=== PATIENT | female | born 1980 | race Two or more races ===

== ENCOUNTER 2020-03-24 13:35 | Emergency (ER) | payer BC ==
[2020-03-24] MEDS ORDERED: Sodium Chloride 0.9% 1,000 ML IV ONE (13:59)
[2020-03-24] MEDS ORDERED: Sodium Chloride 0.9% 10 ML Syringe FLUSH PRN (13:59)
[2020-03-24] MEDS ORDERED: Meclizine 25 MG Tab PO ONE ×2 (13:59→15:02)
--- NOTE | 2020-03-24 14:09 | EDM.PDOC ---
ED HPI GENERAL MEDICAL PROBLEM - General Chief Complaint: Neuro Symptoms/Deficits Stated Complaint: DIZZINESS/VERTIGO Time Seen by Provider: 03/24/20 13:40 Source of Information: Reports: Patient History Limitations: Reports: No Limitations - History of Present Illness INITIAL COMMENTS - FREE TEXT/NARRATIVE: 39 YO FEMALE WITH 4 DAY HISTORY OF DIZZINESS. PT REPORTS TAKING DRAMAMINE WITH RESOLUTION ON WEDNESDAY BUT HER DIZZINESS HAS BECOME PROGRESSIVELY WORSE WITH ASSOCIATED VOMITING LAST NIGHT AND TODAY. PT REPORTS DIZZINESS IS WORSE WITH MOVEMENT. PT REPORTS SHE NOTICES THE ROOM SPINNING ESPECIALLY WHEN TURNING OVER IN BED. PT REPORTS RECENTLY BEING TREATED FOR AN EAR INFECTION ON LEFT SIDE. PT REPORTS SHE TOOK SEPTRA DS FOR INFECTION AND FINISHED COURSE 6 DAYS AGO. PT R EPORTS SOME MILD RINGING/TINNITUS IN LEFT EAR, BUT DENIES PAIN OR DECREASED HEARING. PT DENIES FEVER/CHILLS, NO DIARRHEA OR ABDOMINAL PAIN. PT REPORTS BEING UNABLE TO HOLD DOWN HER BP MEDICATIONS- ATENOLOL/LISINOPRIL THIS AM. Onset Date: 03/21/20 Duration: Day(s): (4) Location: Reports: Generalized Quality: Reports: Dull Severity: Mild Improves with: Reports: Rest Worsens with: Reports: Movement Associated Symptoms: Reports: Chest Pain, Loss of Appetite, Nausea/Vomiting, Weakness. Denies: Cough, Diaphoresis, Fever/Chills, Malaise, Rash, Seizure, Shortness of Breath, Syncope - Related Data Allergies Allergy/AdvReac Type Severity Reaction Status Date / Time Penicillins Allergy Airway Verified 03/24/20 14:08 Tightness Home Meds: Home Meds Meclizine [Antivert] 25 mg PO TID #30 tab 03/24/20 [Rx] Ondansetron [Zofran ODT] 4 mg PO Q6H PRN #10 tab.dis 03/24/20 [Rx] RX: atenoloL [Atenolol] 50 mg PO QAM 03/24/20 [History] lisinopriL [Lisinopril] 5 mg PO QAM 03/24/20 [History] metFORMIN [Glucophage] 500 mg PO BIDMEALS 03/24/20 [History] ED ROS GENERAL - Review of Systems Review Of Systems: See Below Constitutional: Reports: Weakness HEENT: Reports: No Symptoms Respiratory: Reports: No Symptoms Cardiovascular: Reports: Blood Pressure Problem, Lightheadedness Endocrine: Reports: No Symptoms GI/Abdominal: Reports: Nausea, Vomiting : Reports: No Symptoms Musculoskeletal: Reports: No Symptoms Skin: Reports: No Symptoms Neurological: Reports: No Symptoms Psychiatric: Reports: No Symptoms Hematologic/Lymphatic: Reports: No Symptoms Immunologic: Reports: No Symptoms ED EXAM, DIZZINESS - Physical Exam Exam: See Below Exam Limited By: No Limitations General Appearance: Alert, WD/WN, No Apparent Distress Eye Exam: Bilateral Eye: EOMI, PERRL Ears: Hearing Grossly Normal, TM Fluid Nose: Normal Inspection, Normal Mucosa, No Blood Throat/Mouth: Normal Inspection, Normal Lips, Normal Teeth, Normal Gums, Normal Oropharynx, Normal Voice, No Airway Compromise Head Exam: Atraumatic, Normocephalic Vertigo: worsens with head to L, reproducible Neck: Normal Inspection, Supple, Non-Tender, Full Range of Motion Respiratory/Chest: No Respiratory Distress, Lungs Clear, Normal Breath Sounds, No Accessory Muscle Use, Chest Non-Tender Cardiovascular: Normal Peripheral Pulses, Regular Rate, Rhythm, No Edema, No Gallop, No JVD, No Murmur, No Rub GI/Abdominal: Normal Bowel Sounds, Soft, Non-Tender, No Organomegaly, No Distention, No Abnormal Bruit, No Mass Neurological: Alert, Normal Mood/Affect, Normal Dorsiflexion, CN II-XII Intact, Normal Plantar Flexion, Normal Reflexes, No Motor/Sensory Deficits, Oriented x 3 Back Exam: Normal Inspection, Full Range of Motion, NT Extremities: Normal Inspection, Normal Range of Motion, Non-Tender, No Pedal Edema, Normal Capillary Refill Psychiatric: Normal Affect, Normal Mood Skin Exam: Warm, Dry, Intact, Normal Color, No Rash EKG INTERPRETATION EKG Date: 03/24/20 Time: 14:13 Rhythm: NSR Rate (Beats/Min): 76 Kite: Normal P-Wave: Present QRS: Normal ST-T: Normal QT: Normal Comparison: NA - No Prior EKG Course - Vital Signs Last Recorded V/S: Last Vital Signs Temp 36.0 C L 03/24/20 13:55 Pulse 80 03/24/20 15:01 Resp 18 03/24/20 13:55 BP 168/122 H 03/24/20 15:01 Pulse Ox 96 03/24/20 13:55 - Orders/Labs/Meds Orders: Active Orders 24 hr Category Date Time Status EKG Documentation Completion [RC] ASDIRECTED Care 03/24/20 14:00 Active Peripheral IV Care [RC] . DIRECTED Care 03/24/20 14:00 Active Sodium Chloride 0.9% [Saline Flush] Med 03/24/20 13:59 Active 10 ml FLUSH Q8HR PRN Peripheral IV Insertion Adult [OM.PC] Routine Oth 03/24/20 13:59 Ordered EKG 12 Lead [EK] Stat Ther 03/24/20 14:00 Ordered Medication Orders Sodium Chloride (Saline Flush) 10 ml FLUSH Q8HR PRN PRN Reason: keep vein open Labs: Laboratory Tests 03/24/20 03/24/20 03/24/20 Range/Units 13:49 13:49 13:49 WBC 13.49 H (5.00-10.00) 10^3/uL RBC 5.02 (3.80-5.50) 10^6/uL Hgb 15.2 (12.0-16.0) g/dL Hct 45.0 (37.0-47.0) % MCV 89.6 (82.0-92.0) fL MCH 30.3 (27.0-31.0) pg MCHC 33.8 (32.0-36.0) g/dL RDW 13.3 (11.5-14.5) % Plt Count 351 (150-400) 10^3/uL MPV 10.1 (7.4-10.4) fL Immature Gran % (Auto) 0.2 (0.0-5.0) % Neut % (Auto) 80.3 H (50.0-70.0) % Lymph % (Auto) 12.8 L (20.0-40.0) % [place] % (Auto) 5.6 (2.0-8.0) % Eos % (Auto) 0.9 L (1.0-3.0) % Baso % (Auto) 0.2 (0.0-1.0) % Neut # (Auto) 10.82 H (2.50-7.00) 10^3/uL Lymph # (Auto) 1.73 (1.00-4.00) 10^3/uL [place] # (Auto) 0.76 (0.10-0.80) 10^3/uL Eos # (Auto) 0.12 (0.10-0.30) 10^3/uL Baso # (Auto) 0.03 (0.00-0.10) 10^3/uL Immature Gran # (Auto) 0.03 (0.00-0.50) 10^3/uL Sodium 139 (136-145) mmol/L Potassium 4.0 (3.3-5.3) mmol/L Chloride 100 (98-115) mmol/L Carbon Dioxide 28.0 (21.0-32.0) mmol/L Anion Gap 15.0 (5-15) mmol/L BUN 13 (6-25) mg/dL Creatinine 0.60 (0.51-1.17) mg/dL Est Cr Clr Drug Dosing 108.70 mL/min Estimated GFR (MDRD) > 60 mL/min Glucose 163 H (75 - 99) mg/dL Calcium 9.1 (8.7-10.3) mg/dL Total Bilirubin 0.4 (0.2-1.0) mg/dL AST 15 (15-37) U/L ALT 33 (12-78) U/L Alkaline Phosphatase 91 (46-116) IU/L Creatine Kinase 109 (26-276) U/L CK-MB (CK-2) 1.90 (0.00-4.30) ng/mL Troponin I < 0.04 (0.00-0.070) ng/mL Total Protein 7.9 (6.4-8.2) g/dL Albumin 3.88 (3.00-4.80) g/dL HCG, Quant < 1 mIU/mL Specimen Type Urine Color (YELLOW) Urine Appearance (CLEAR) Urine pH (5.0-9.0) Ur Specific [place] (1.005-1.030) Urine Protein (NEGATIVE) mg/dL Urine Glucose (UA) (NEGATIVE) mg/dL Urine Ketones (NEGATIVE) mg/dL Urine Occult Blood (NEGATIVE) Urine Nitrite (NEGATIVE) Urine Bilirubin (NEGATIVE) Urine Urobilinogen (0.2-1.0) E.U./dL Ur Leukocyte Esterase (NEGATIVE) Urine RBC (0-5) /HPF Urine WBC (0-5) /HPF Ur Epithelial Cells /LPF Urine Bacteria (NONE TO FEW) /HPF Urine Mucus (NEGATIVE) /LPF 10/04/20 Range/Units 14:50 WBC (5.00-10.00) 10^3/uL RBC (3.80-5.50) 10^6/uL Hgb (12.0-16.0) g/dL Hct (37.0-47.0) % MCV (82.0-92.0) fL MCH (27.0-31.0) pg MCHC (32.0-36.0) g/dL RDW (11.5-14.5) % Plt Count (150-400) 10^3/uL MPV (7.4-10.4) fL Immature Gran % (Auto) (0.0-5.0) % Neut % (Auto) (50.0-70.0) % Lymph % (Auto) (20.0-40.0) % [place] % (Auto) (2.0-8.0) % Eos % (Auto) (1.0-3.0) % Baso % (Auto) (0.0-1.0) % Neut # (Auto) (2.50-7.00) 10^3/uL Lymph # (Auto) (1.00-4.00) 10^3/uL [place] # (Auto) (0.10-0.80) 10^3/uL Eos # (Auto) (0.10-0.30) 10^3/uL Baso # (Auto) (0.00-0.10) 10^3/uL Immature Gran # (Auto) (0.00-0.50) 10^3/uL Sodium (136-145) mmol/L Potassium (3.3-5.3) mmol/L Chloride (98-115) mmol/L Carbon Dioxide (21.0-32.0) mmol/L Anion Gap (5-15) mmol/L BUN (6-25) mg/dL Creatinine (0.51-1.17) mg/dL Est Cr Clr Drug Dosing mL/min Estimated GFR (MDRD) mL/min Glucose (75 - 99) mg/dL Calcium (8.7-10.3) mg/dL Total Bilirubin (0.2-1.0) mg/dL AST (15-37) U/L ALT (12-78) U/L Alkaline Phosphatase (46-116) IU/L Creatine Kinase (26-276) U/L CK-MB (CK-2) (0.00-4.30) ng/mL Troponin I (0.00-0.070) ng/mL Total Protein (6.4-8.2) g/dL Albumin (3.00-4.80) g/dL HCG, Quant mIU/mL Specimen Type Urinvoid Urine Color Yellow (YELLOW) Urine Appearance Slightly cloudy H (CLEAR) Urine pH 6.5 (5.0-9.0) Ur Specific [place] >= 1.030 (1.005-1.030) Urine Protein 30 H (NEGATIVE) mg/dL Urine Glucose (UA) Negative (NEGATIVE) mg/dL Urine Ketones 15 H (NEGATIVE) mg/dL Urine Occult Blood Negative (NEGATIVE) Urine Nitrite Negative (NEGATIVE) Urine Bilirubin Negative (NEGATIVE) Urine Urobilinogen 0.2 (0.2-1.0) E.U./dL Ur Leukocyte Esterase Negative (NEGATIVE) Urine RBC 0-5 (0-5) /HPF Urine WBC 5-10 H (0-5) /HPF Ur Epithelial Cells Moderate H /LPF Urine Bacteria Few (NONE TO FEW) /HPF Urine Mucus Many H (NEGATIVE) /LPF Meds: Medications Generic Name Dose Route Start Last Admin Trade Name Freq PRN Reason Stop Dose Admin Sodium Chloride 10 ml 03/24/20 13:59 Saline Flush FLUSH Q8HR PRN keep vein open Discontinued Medications Generic Name Dose Route Start Last Admin Trade Name Freq PRN Reason Stop Dose Admin Atenolol 50 mg 03/24/20 14:53 03/24/20 15:01 Tenormin PO 03/24/20 14:54 50 mg ONETIME ONE Administration Sodium Chloride 1,000 mls @ 999 mls/hr 03/24/20 13:59 03/24/20 14:20 Normal Saline IV 03/24/20 14:59 999 mls/hr .BOLUS ONE Administration Lisinopril 5 mg 03/24/20 14:53 03/24/20 15:01 Prinivil PO 03/24/20 14:54 5 mg ONETIME ONE Administration Meclizine HCl 25 mg 03/24/20 13:59 03/24/20 14:15 Antivert PO 03/24/20 14:00 25 mg ONETIME ONE Administration Meclizine HCl 75 mg 03/24/20 15:02 Antivert PO 03/24/20 15:03 ONETIME ONE Ondansetron HCl 4 mg 03/24/20 13:59 03/24/20 14:21 Zofran IVPUSH 03/24/20 14:00 4 mg ONETIME ONE Administration Ondansetron HCl 12 mg 03/24/20 15:02 Zofran Odt PO 03/24/20 15:03 ONETIME ONE - Radiology Interpretation Free Text/Narrative:: CXR-NAD CT HEAD- NAD - Re-Assessments/Exams Free Text/Narrative Re-Assessment/Exam: 03/24/20 15:12 PT REPORTS NAUSEA AND DIZZINESS RESOLVED AFTER MEDICATION. PT ALERT AND ORIENTED X 4. PT REPORTS SHE'S HEADED HOME TONIGHT-NOT DRIVING AND WILL FOLLOW UP WITH PCP EARLY THIS WEEK. PT ABLE TO AMBULATE WITH MINIMAL ATAXIA Departure - Departure Time of Disposition: 15:15 Disposition: Home, Self-Care 01 Condition: Good Clinical Impression: Vertigo, Acute viral labyrinthitis of left ear - Discharge Information Prescriptions: Meclizine [Antivert] 25 mg PO TID #30 tab Ondansetron [Zofran ODT] 4 mg PO Q6H PRN #10 tab.dis PRN Reason: Vomiting Instructions: Labyrinthitis, [id number], Dizziness, [id number] Referrals: Carol Hagen MD [Primary Care Provider] - Forms: ED Department Discharge Additional Instructions: 1. DISCHARGE HOME 2. ANTIVERT 25MG #30 EVERY 8 HOURS NEEDED FOR DIZZINESS 3. ZOFRAN 4MG ODT #10 EVERY 6-8 HOURS NEEDED FOR NAUSEA 4. CONTINUE HOME MEDICATIONS 5. FOLLOW UP WITH PCP IN [facility] NEXT 24-48 HOURS FOR FURTHER EVALUATION AND TREATMENT 6. RETURN TO ER FOR WORSENING SYMPTOMS Sepsis Event Note (ED) - Focused Exam Vital Signs: Vital Signs Temp Pulse Pulse Resp BP BP Pulse Ox 03/24/20 15:01 80 168/122 H 03/24/20 13:55 36.0 C L 77 18 179/109 H 96 - My Orders Last 24 Hours: My Active Orders 03/24/20 13:59 Sodium Chloride 0.9% [Saline Flush] 10 ml FLUSH Q8HR PRN Peripheral IV Insertion Adult [OM.PC] Routine 03/24/20 14:00 EKG Documentation Completion [RC] ASDIRECTED Peripheral IV Care [RC] . DIRECTED EKG 12 Lead [EK] Stat - Assessment/Plan Last 24 Hours: My Active Orders 03/24/20 13:59 Sodium Chloride 0.9% [Saline Flush] 10 ml FLUSH Q8HR PRN Peripheral IV Insertion Adult [OM.PC] Routine 03/24/20 14:00 EKG Documentation Completion [RC] ASDIRECTED Peripheral IV Care [RC] . DIRECTED EKG 12 Lead [EK] Stat Assessment:: 1. VERTIGO/LABYRINTHITIS 2. UNCONTROLLED HYPERTENSION Plan: 1. DISCHARGE HOME 2. ANTIVERT 25MG #30 EVERY 8 HOURS NEEDED FOR DIZZINESS 3. ZOFRAN 4MG ODT #10 EVERY 6-8 HOURS NEEDED FOR NAUSEA 4. CONTINUE HOME MEDICATIONS 5. FOLLOW UP WITH PCP IN [facility] NEXT 24-48 HOURS FOR FURTHER EVALUATION AND TREATMENT 6. RETURN TO ER FOR WORSENING SYMPTOMS
[2020-03-24] MEDS: Ondansetron 4 MG/2 ML SDV IVPUSH ONE ×3 (14:21→15:46)
[2020-03-24 14:38] LABS: CHLORIDE,CL 100 mmol/L (98-115); SODIUM,NA 139 mmol/L (136-145)
[2020-03-24] MEDS ORDERED: Atenolol 25 MG Tab PO ONE (14:53)
[2020-03-24] MEDS ORDERED: Lisinopril 5 MG Tab PO ONE (14:53)
[2020-03-24] MEDS ORDERED: Ondansetron 4 MG Tab.DIS PO ONE (15:02)
--- NOTE | 2020-03-24 15:11 | CR ---
[id number] RAD/RAD Chest PA or AP 1V EXAM: FRONTAL CHEST INDICATION: DIZZINESS. COMPARISON: None. DISCUSSION: Evaluation is mildly limited by low lung volumes with basilar atelectasis. Within this limitation, no infiltrates or other acute findings are seen. The heart is normal in size. There is mild tortuosity of the thoracic aorta. IMPRESSION: 1. Low lung volumes. Erasmo Powers MD 03/24/20 [id number] Thank you for allowing us to participate in the care of your patient.
--- NOTE | 2020-03-24 15:13 | CT ---
[id number] CT/CT Head WO IV EXAM: NONCONTRAST HEAD CT INDICATION: DIZZINESS. COMPARISON: September 11, 2019. DISCUSSION: The ventricles and sulci are normal in size and configuration. The baltazar and white matter are normal in attenuation. No mass effect or midline shift. No acute hemorrhage or extra-axial fluid collection. No acute territorial infarct is identified. A limited look at the orbits and paranasal sinuses is unremarkable. IMPRESSION: 1. Negative exam. Erasmo Powers MD 03/24/20 1512 Thank you for allowing us to participate in the care of your patient.
[2020-03-24] MEDS ORDERED: Ondansetron 4 MG/2 ML SDV ONE (15:41)
[2020-03-25] MEDS: Ondansetron 4 MG/2 ML SDV IVPUSH ONE (15:06)
== END 2020-03-24 16:10 | disposition home or self-care (01) ==
LOC: KA.ED 13:35
DX: H83.02 Labyrinthitis, left ear (principal); I10 Essential (primary) hypertension; Z88.0 Allergy status to penicillin; Z79.899 Other long term (current) drug therapy
CPT/HCPCS: 70450; 71045; 80053; 81001; 82550; 82553; 84484; 84702; 85025; 93005; 96361; 96374; 96376; 99284; A9270; J2405; J7030; 99283

== ENCOUNTER 2020-09-15 17:59 | Emergency (ER) | payer BC ==
[2020-09-15] MEDS: LORazepam 0.5 MG Tab PO ONE (18:18)
[2020-09-15] MEDS ORDERED: Sodium Chloride 0.9% 10 ML Syringe FLUSH PRN (18:50)
--- NOTE | 2020-09-15 18:51 | EDM.PDOC ---
ED HPI GENERAL MEDICAL PROBLEM - General Chief Complaint: General Stated Complaint: HYPERTENSION Time Seen by Provider: 09/15/20 18:37 Source of Information: Reports: Patient History Limitations: Reports: No Limitations - History of Present Illness INITIAL COMMENTS - FREE TEXT/NARRATIVE: Patient presents with high blood pressure and headache. She rates the headache at 4/10 which is worse than it has been over the past two days since onset. Her blood pressure has been high ever since she switched from Hyzaar or Cozaar to Lisinopril 3 months ago. At the same time of the switched her atenolol dose was also decreased. Her BP has been averaging 140's/90's she says. Occasional episodes to 200+/120 have occurred. She hasn't followed up with her PCP in [place] at all in 3 months, just thinking it would start getting better. Headache Pain Score (Numeric/FACES): 6 - Related Data Allergies Allergy/AdvReac Type Severity Reaction Status Date / Time Penicillins Allergy Airway Verified 09/15/20 18:51 Tightness Home Meds: Home Meds Meclizine [Antivert] 25 mg PO TID #30 tab 03/24/20 [Rx] Ondansetron [Zofran ODT] 4 mg PO Q6H PRN #10 tab.dis 03/24/20 [Rx] atenoloL [Atenolol] 50 mg PO QAM 03/24/20 [History] lisinopriL [Lisinopril] 5 mg PO QAM 03/24/20 [History] metFORMIN [Glucophage] 500 mg PO BIDMEALS 03/24/20 [History] Past Medical History HEENT History: Reports: Impaired Vision, Other (See Below) Other HEENT History: CONTACT LENSES Cardiovascular History: Reports: Hypertension Respiratory History: Reports: Sleep Apnea Other Respiratory History: CPAP Genitourinary History: Reports: None [employer] History: Reports: Endometriosis, Other [employer] History: OVARIAN CYSTS. DERMOID TUMOR REMOVAL Neurological History: Reports: Vertigo Other Neuro History: NO HISTORY OF VERTIGO - IN ER TODAY FOR VERTIGO, RECENT EAR INFECTION Endocrine/Metabolic History: Reports: Diabetes, Type II, Obesity/BMI 30+ Hematologic History: Reports: Iron Deficiency Other Hematologic History: IRON INFUSIONS - Infectious Disease History Infectious Disease History: Reports: Chicken Pox, Shingles - Past Surgical History HEENT Surgical History: Reports: None Cardiovascular Surgical History: Reports: None Respiratory Surgical History: Reports: None Female Surgical History: Reports: Section, Hysterectomy Endocrine Surgical History: Reports: None Neurological Surgical History: Reports: None Social & Family History - Caffeine Use Caffeine Use: Reports: Energy Drinks, Tea ED ROS GENERAL - Review of Systems Review Of Systems: See Below Constitutional: Denies: Fever, Chills, Malaise, Weakness HEENT: Denies: Ear Pain, Throat Pain, Vision Change Respiratory: Denies: Shortness of Breath, Cough Cardiovascular: Denies: Chest Pain, Lightheadedness, Syncope GI/Abdominal: Reports: Constipation (some), Nausea. Denies: Abdominal Pain, Diarrhea, Vomiting : Denies: Dysuria (she had a UTI treated a week ago and good now), Flank Pain Musculoskeletal: Reports: No Symptoms Skin: Denies: Cyanosis, Jaundice, Mottled, Pallor, Diaphoresis Neurological: Reports: Headache. Denies: Confusion, Dizziness, Seizure, Syncope, Trouble Speaking, Difficulty Walking Psychiatric: Denies: Agitation, Anxiety, Confusion ED EXAM, GENERAL - Physical Exam Exam: See Below Exam Limited By: No Limitations General Appearance: Alert, WD/WN, No Apparent Distress Eye Exam: Bilateral Eye: EOMI, Normal Inspection, PERRL Ears: Normal External Exam, Hearing Grossly Normal Nose: Normal Inspection, No Blood Throat/Mouth: Normal Inspection, Normal Voice, No Airway Compromise Head: Atraumatic, Normocephalic Neck: Normal Inspection, Full Range of Motion Respiratory/Chest: No Respiratory Distress, Lungs Clear, Normal Breath Sounds, No Accessory Muscle Use Cardiovascular: Regular Rate, Rhythm, No Murmur Back Exam: Normal Inspection, Full Range of Motion. No: CVA Tenderness (L), CVA Tenderness (R) Extremities: Normal Inspection, Normal Range of Motion Neurological: Alert, Oriented, Normal Cognition, No Motor/Sensory Deficits Psychiatric: Normal Affect, Normal Mood Skin Exam: Warm, Dry, Intact, Normal Color, No Rash Course - Vital Signs Last Recorded V/S: Last Vital Signs Temp 97.6 F 09/15/20 18:20 Pulse 66 09/15/20 19:30 Resp 14 09/15/20 19:30 BP 137/90 09/15/20 19:30 Pulse Ox 94 L 09/15/20 19:30 - Orders/Labs/Meds Orders: Active Orders 24 hr Category Date Time Status Peripheral IV Care [RC] . DIRECTED Care 09/15/20 18:50 Active Sodium Chloride 0.9% [Saline Flush] Med 09/15/20 18:50 Active 10 ml FLUSH Q8HR PRN Peripheral IV Insertion Adult [OM.PC] Routine Oth 09/15/20 18:50 Ordered Medication Orders Sodium Chloride (Sodium Chloride 0.9% 10 Ml Syringe) 10 ml FLUSH Q8HR PRN PRN Reason: keep vein open Labs: Laboratory Tests 09/15/20 09/15/20 Range/Units 18:40 18:40 WBC 11.80 H (5.00-10.00) 10^3/uL RBC 4.79 (3.80-5.50) 10^6/uL Hgb 14.4 (12.0-16.0) g/dL Hct 43.2 (37.0-47.0) % MCV 90.2 (82.0-92.0) fL MCH 30.1 (27.0-31.0) pg MCHC 33.3 (32.0-36.0) g/dL RDW 13.5 (11.5-14.5) % Plt Count 374 (150-400) 10^3/uL MPV 10.1 (7.4-10.4) fL Immature Gran % (Auto) 0.1 (0.0-5.0) % Neut % (Auto) 63.7 (50.0-70.0) % Lymph % (Auto) 27.9 (20.0-40.0) % [place] % (Auto) 6.6 (2.0-8.0) % Eos % (Auto) 1.4 (1.0-3.0) % Baso % (Auto) 0.3 (0.0-1.0) % Neut # (Auto) 7.52 H (2.50-7.00) 10^3/uL Lymph # (Auto) 3.29 (1.00-4.00) 10^3/uL [place] # (Auto) 0.78 (0.10-0.80) 10^3/uL Eos # (Auto) 0.16 (0.10-0.30) 10^3/uL Baso # (Auto) 0.04 (0.00-0.10) 10^3/uL Immature Gran # (Auto) 0.01 (0.00-0.50) 10^3/uL Sodium 141 (136-145) mmol/L Potassium 4.0 (3.5-5.1) mmol/L Chloride 102 (98-107) mmol/L Carbon Dioxide 28.4 (21.0-32.0) mmol/L Anion Gap 14.6 (5-15) mmol/L BUN 20 H (7-18) mg/dL Creatinine 0.66 (0.51-1.17) mg/dL Est Cr Clr Drug Dosing 98.82 mL/min Estimated GFR (MDRD) > 60 mL/min Glucose 124 (70-140) mg/dL Calcium 9.2 (8.7-10.3) mg/dL Meds: Medications Generic Name Dose Route Start Last Admin Trade Name Freq PRN Reason Stop Dose Admin Sodium Chloride 10 ml 09/15/20 18:50 Sodium Chloride 0.9% 10 Ml Syringe FLUSH Q8HR PRN keep vein open Discontinued Medications Generic Name Dose Route Start Last Admin Trade Name Freq PRN Reason Stop Dose Admin Labetalol HCl 20 mg 09/15/20 18:51 09/15/20 19:15 Labetalol 100 Mg/20 Ml Mdv IVPUSH 09/15/20 18:52 20 mg ONETIME ONE Administration Protocol Lorazepam 0.5 mg 09/15/20 18:15 09/15/20 18:18 Lorazepam 0.5 Mg Tab PO 09/15/20 18:16 0.5 mg ONETIME ONE Administration Lorazepam Confirm 09/15/20 18:17 09/15/20 19:30 Lorazepam 0.5 Mg Tab Administered 09/15/20 18:18 Not Given Dose 0.5 mg .ROUTE .STK-MED ONE Ondansetron HCl 4 mg 09/15/20 19:10 09/15/20 19:21 Ondansetron 4 Mg/2 Ml Sdv IVPUSH 09/15/20 19:11 4 mg ONETIME ONE Administration - Re-Assessments/Exams Free Text/Narrative Re-Assessment/Exam: 09/15/20 20:12 Labs good. After Zofran 4 mg and Labetalol 20 mg IVP her headache is now almost gone and BP is 131/84 and steady for over half an hour. I discussed findings and recommendations with patient. She agrees to follow up on her blood pressure. Stable at discharge. Departure - Departure Time of Disposition: 20:03 Disposition: Home, Self-Care 01 Condition: Good Clinical Impression: Hypertensive urgency Headache Qualifiers: Headache chronicity pattern: acute headache Intractability: not intractable - Discharge Information Instructions: Hypertension, Adult, [id number] Referrals: PCP,Not In Area [Primary Care Provider] - Forms: ED Department Discharge Additional Instructions: Drink 8 cups of water daily. Continue your regular medications as directed. Follow up with your PCP or a local provider this week to further evaluated your blood pressure control. Return to ER as needed. Sepsis Event Note (ED) - Evaluation Sepsis Screening Result: No Definite Risk - Focused Exam Vital Signs: Vital Signs Temp Pulse Resp BP Pulse Ox 09/15/20 19:30 66 14 137/90 94 L 09/15/20 19:16 76 20 141/87 H 97 09/15/20 19:01 62 25 H 165/103 H 98 09/15/20 18:49 67 21 H 194/112 H 99 09/15/20 18:45 64 17 177/115 H 100 09/15/20 18:39 70 12 174/113 H 99 09/15/20 18:34 64 17 170/100 H 99 09/15/20 18:30 61 20 176/101 H 99 09/15/20 18:29 63 20 171/106 H 99 09/15/20 18:24 65 15 152/101 H 99 09/15/20 18:21 63 12 169/105 H 09/15/20 18:20 97.6 F 68 14 174/105 H 98 09/15/20 18:15 66 14 155/96 H 98 09/15/20 18:14 65 21 H 157/98 H 98 - My Orders Last 24 Hours: My Active Orders 09/15/20 18:50 Peripheral IV Care [RC] . DIRECTED Sodium Chloride 0.9% [Saline Flush] 10 ml FLUSH Q8HR PRN Peripheral IV Insertion Adult [OM.PC] Routine - Assessment/Plan Last 24 Hours: My Active Orders 09/15/20 18:50 Peripheral IV Care [RC] . DIRECTED Sodium Chloride 0.9% [Saline Flush] 10 ml FLUSH Q8HR PRN Peripheral IV Insertion Adult [OM.PC] Routine
[2020-09-15] MEDS: Labetalol 100 MG/20 ML MDV IVPUSH ONE (19:15)
[2020-09-15] MEDS: Ondansetron 4 MG/2 ML SDV IVPUSH ONE (19:21)
[2020-09-15] MEDS: LORazepam 0.5 MG Tab ONE (19:30)
[2020-09-15 19:51] LABS: ANION GAP 14.6 mmol/L (5-15); CHLORIDE,CL 102 mmol/L (98-107); SODIUM,NA 141 mmol/L (136-145)
== END 2020-09-15 20:21 | disposition home or self-care (01) ==
LOC: KA.ED 17:59
DX: I16.0 Hypertensive urgency (principal); I10 Essential (primary) hypertension; E11.9 Type 2 diabetes mellitus without complications; E66.9 Obesity, unspecified; Z68.37 Body mass index [BMI] 37.0-37.9, adult; Z79.84 Long term (current) use of oral hypoglycemic drugs; Z79.899 Other long term (current) drug therapy; Z88.0 Allergy status to penicillin
CPT/HCPCS: 36415; 80048; 85025; 96374; 96375; 99284; 99284-25; A9270-GY; J2405; J3490